=== PATIENT | female | born 1970 | race Caucasian/White ===

== ENCOUNTER → 2017-04-06 | Outpatient (CLI) | payer OTHER ==
[~2017-04-06] MED LIST: KEFLEX500 MG PO; PERCOCET 5/31 TABLET PO
== END | disposition home or self-care (01) ==
LOC: CDC
DX: M19.031 Primary osteoarthritis, right wrist (principal); M25.531 Pain in right wrist; G56.01 Carpal tunnel syndrome, right upper limb
CPT/HCPCS: 93000